=== PATIENT | female | born 1980 ===

== ENCOUNTER 2017-01-04 05:18 | Day surgery (SDC) | payer BC ==
[2017-01-02 11:06] VITALS: BMI 34.4
--- NOTE | 2017-01-04 09:44 | HP ---
Satellite H - Chief Complaint Chief Complaint: right achilles rupture - Past Medical History Allergies/Adverse Reactions: Allergies Allergy/AdvReac Type Severity Reaction Status Date / Time No Known Allergies Allergy Verified 01/02/17 10:53 ...LMP: 12/27/16 ...LMP Comment: currently trying to get , will repeat PGU - Current Medications Current Medications: Home Medications Medication Instructions Recorded Ibuprofen [Motrin -] 800 mg PO PRN PRN 01/02/17 Levothyroxine [Synthroid -] 50 mcg PO DAILY 01/02/17 Pnv No.121/Iron/Folic Acid 1 each PO DAILY 01/02/17 [ Multivitamin Tablet] Oxycodone HCl/Acetaminophen 1 - 2 tab PO Q6H #50 tab MDD 8 01/04/17 [Percocet 5-325 mg Tablet] Satellite Physical Exam - Physical Examination Vital Signs: Vital Signs Period Temp Pulse Resp BP Sys/Santos Pulse Ox Last 24 Hr 98.3 F 70 18 124/74 98 General Appearance: Well Nourished, Well Developed, Alert & Oriented x3 ENT: Clear Lung: Normal air movement Heart: Regular rate & rhythm Extremities: Other (right ankle- + ttp, + swelling, + defect in achilles, + garrison, nvi) Neurological: Intact, Alert, Oriented Satellite Impression/Plan - Impression/Plan Impression: right achilles tendon rupture Operative Procedure: right achilles tendon repair Date to be Performed: 01/04/17
[2017-01-04] MEDS ORDERED: ROPIVACAINE HCL 0.5% 30ML VIAL ONE (09:59)
[2017-01-04] MEDS ORDERED: MIDAZOLAM HCL 2 MG/2 ML SINGLE DOSE VIAL ONE ×2 (10:00)
[2017-01-04] MEDS ORDERED: ROCURONIUM BROMIDE 50 MG/5 ML VIAL ONE (10:20)
[2017-01-04] MEDS ORDERED: PROPOFOL 20 ML ONE ×2 (10:20→11:40)
[2017-01-04] MEDS ORDERED: SODIUM CHLORIDE 0.9% P/F 10 ML VIAL IJ ONE (10:48)
[2017-01-04] MEDS ORDERED: ceFAZolin SODIUM 1 GM VIAL ONE (10:48)
[2017-01-04] MEDS ORDERED: LIDOCAINE HCL/PF 2% SDV 5ML VIAL ONE (10:48)
[2017-01-04] MEDS ORDERED: ceFAZolin SODIUM 1 GM VIAL IVPB ONE (10:49)
[2017-01-04] MEDS ORDERED: DEXAMETHASONE SOD PHOSPHATE 4 MG/1 ML VIAL ONE (10:51)
[2017-01-04] MEDS ORDERED: GLYCOPYRROLATE 0.2 MG/1 ML VIAL ONE (11:10)
[2017-01-04] MEDS ORDERED: NEOSTIGMINE METHYLSULFATE 0.5 MG/ML - 10 ML MDV ONE (11:10)
--- NOTE | 2017-01-04 11:44 | OP ---
Operative Note - Note: Operative Date: 01/04/17 ([facility]) Pre-Operative Diagnosis: right achilles tendon rupture Operation: right achilles tendon repair, plantaris tendon harvest with augmentation Post-Operative Diagnosis: Same as Pre-op Surgeon: Krystian Jacobo Annual Giving Officer: Elder Schneider Anesthesiologist/MOBILE ENGINEER: Demetris Suggs Anesthesia: General Estimated Blood Loss (mls): 5 (tourniquet) Operative Report Dictated: Yes
[2017-01-04] MEDS ORDERED: oxyCODONE HCL 5 MG TABLET PO PRN (11:58)
[2017-01-04] MEDS ORDERED: IBUPROFEN 800 MG/8 ML IJ IVPB PRN (11:58)
[2017-01-04] MEDS ORDERED: ONDANSETRON 4 MG/2 ML VIAL IVPUSH PRN (11:58)
[2017-01-04] MEDS ORDERED: LACTATED RINGERS SOLUTION 1,000 ML IV SCH (12:00)
--- NOTE | 2017-01-04 12:22 | OP ---
DATE OF OPERATION: 01/04/2017 PREOPERATIVE DIAGNOSIS: Right Achilles tendon rupture. POSTOPERATIVE DIAGNOSIS: Right Achilles tendon rupture. PROCEDURE: Right Achilles tendon repair with plantaris tendon harvesting and augmentation. SURGICAL ATTENDING: Krystian Jacobo MD FLAMER SEALER: MILADY Chaves ANESTHESIA: General endotracheal intubation. POSITION: Prone. CLOSURE: Arthrex SutureTape for the tendon, 3-0 Vicryl for plantaris, 2-0 Vicryl for subcutaneous, and anika for skin. ESTIMATED BLOOD LOSS: Negligible. TOURNIQUET TIME: Approximately 50 minutes. COMPLICATIONS: None. CONDITION: To recovery room in stable condition. DESCRIPTION OF OPERATIVE PROCEDURE: Patient was taken to the operating room on January 04, 2017. General anesthesia with endotracheal intubation was administered by the anesthesiologist. IV Kefzol was given prophylactically prior to the case. Patient was placed in the prone position with all prominences well padded. A well-padded pneumatic tourniquet was placed on the right proximal calf away from the fibular head. The right lower extremity was prepped and draped in the usual sterile fashion. Leg was exsanguinated with an Esmarch bandage, and tourniquet was inflated to 250 mmHg. An 8-cm curved longitudinal incision centered over the gap, and the Achilles tendon was incised. Hemostasis was achieved using Bovie cautery. A full-thickness dissection was then carried down to the level of the tendon. The 2 ends were mobilized. The proximal end was found to be very small until it turned into muscular tissue. The plantaris tendon was found to be intact medially. It was harvested both distally and proximally and held on the back table. SutureTape was Arthrex was weaved in a baseball fashion up and down the sides of the tendon, 2 tapes on the proximal and 2 tapes on the distal. A fasciotomy was performed at the base to increase blood supply for later healing. With the leg in an equinus position, the sutures were tied one to the other achieving good tendon repair. The plantaris tendon was teased apart as a sheath and was wrapped around the repair to aid in collagen placement and invagination and healing of healing tissue. This was laid into place using 3-0 Vicryl suture. The incision was irrigated with copious amount of irrigation. The subcutaneous was closed with 2-0 Vicryl and anika for skin. A sterile pressure dressing followed by equinus splint was applied. Tourniquet was deflated. Total tourniquet time was approximately 50 minutes. No complications. Apryl [id number]
[2017-01-04] MEDS ORDERED: oxyCODONE HCL 5 MG TABLET ONE (12:37)
[2017-01-04 12:55] VITALS: TEMP 98.2
[2017-01-04 14:40] VITALS: BP 108/71; PULSE 71
== END 2017-01-04 14:41 | disposition home or self-care (01) ==
LOC: JASU-SURG 05:18
PROVIDERS: ATTEND Orthopaedic Surgery
PROC: 0LUN07Z Supplement Right Lower Leg Tendon with Autologous Tissue Substitute, Open Approach (ICD-10-PCS; principal; 2017-01-04 09:30)
DX: S86.011A Strain of right Achilles tendon, initial encounter (principal); X58.XXXA Exposure to other specified factors, initial encounter; Y93.9 Activity, unspecified; Y92.9 Unspecified place or not applicable; Y99.9 Unspecified external cause status
CPT/HCPCS: 94760; 97116-GP